=== PATIENT | male | born 1970 | race American Indian/Alaskan Native ===

== ENCOUNTER 2019-01-21 05:20 | Emergency (ER) | payer OTHER ==
[~2019-01-21] VITALS: Ht 182.9 cm; Wt 90.7 kg
[~2019-01-21 05:20] MED LIST: BUPROPION XL300 MG PO
--- OUTSIDE RECORDS SUMMARY | 2019-01-21 05:22 | XMS ---
PreManage Notification: JORGE DAVIS Security Bottom Crane Operator Events No recent Security Events currently on file CRITERIA MET - Group Notification [facility] PHONE: [phone] Rama has no Care Guidelines for this patient. Manjit VISIT COUNT (12 MO.) 1 [facility] TOTAL 1 NOTE: Visits indicate total known visits. ED/UCC VISIT TRACKING (12 MO.) 01/21/2019 05:21 [facility]INA [facility] [place] TYPE: Emergency COMPLAINT: - OVERDOSE INPATIENT VISIT TRACKING (12 MO.) No inpatient visits to display in this time frame [email or web address]/[id number]
[2019-01-21] MEDS ORDERED: SUBOXONE 8 MG-1 EAC1 SL (05:33)
== END 2019-01-21 05:55 | disposition home or self-care (01) ==
LOC: ED 05:20
DX: F15.90 Other stimulant use, unspecified, uncomplicated (principal); F32.9 Major depressive disorder, single episode, unspecified
CPT/HCPCS: 99283

== ENCOUNTER 2019-01-21 06:44 | Emergency (ER) | payer OTHER ==
[~2019-01-21] VITALS: Ht 182.9 cm; Wt 90.7 kg
[~2019-01-21 06:44] MED LIST changes: +SUBOXONE 8 MG-1 EAC1 SL
--- OUTSIDE RECORDS SUMMARY | 2019-01-21 06:46 | XMS ---
PreManage Notification: JORGE DAVIS Security Patient Financial Services Manager Events No recent Security Events currently on file CRITERIA MET - [facility] - 2 Visits in 30 Days CARE PROVIDERS [facility]Current PHONE: [phone] Rama has no Care Guidelines for this patient. Manjit VISIT COUNT (12 MO.) 2 [facility] TOTAL 2 NOTE: Visits indicate total known visits. ED/UCC VISIT TRACKING (12 MO.) 01/21/2019 06:45 [facility] [place] TYPE: Emergency COMPLAINT: - ABD PAIN 01/21/2019 05:21 [facility]ARINA [facility]endo[facility] [place] TYPE: Emergency COMPLAINT: - OVERDOSE INPATIENT VISIT TRACKING (12 MO.) No inpatient visits to display in this time frame [id number]
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
== END 2019-01-21 08:01 | disposition home or self-care (01) ==
LOC: ED 06:44
DX: R07.89 Other chest pain (principal); F32.9 Major depressive disorder, single episode, unspecified
CPT/HCPCS: 71046; 99284-25; A9270

== ENCOUNTER 2019-02-07 10:59 | Emergency (ER) | payer OTHER ==
[~2019-02-07] VITALS: Ht 182.9 cm; Wt 90.7 kg
--- OUTSIDE RECORDS SUMMARY | 2019-02-07 11:02 | XMS ---
PreManage Notification: JORGE DAVIS Security Radar Repairer Events No recent Security Events currently on file CRITERIA MET - Group Notification - [facility] - 2 Visits in 30 Days CARE PROVIDERS [facility]/02/[facility]-Current PHONE: [phone] Rama has no Care Guidelines for this patient. Manjit VISIT COUNT (12 MO.) 3 [facility] TOTAL 3 NOTE: Visits indicate total known visits. ED/C VISIT TRACKING (12 MO.) 02/07/2019 11:00 [facility] [place] TYPE: Emergency COMPLAINT: - MEDICAL CLEARANCE 01/21/2019 06:45 [facility]ARINA [facility] [place] TYPE: Emergency COMPLAINT: - ABD PAIN DIAGNOSES: - Major depressive disorder, single episode, unspecified - Unspecified abdominal pain - Other chest pain 01/21/2019 05:21 [facility]ARINA [facility]za [place] TYPE: Emergency COMPLAINT: - DRUG USE DIAGNOSES: - Other stimulant use, unspecified, uncomplicated - Major depressive disorder, single episode, unspecified INPATIENT VISIT TRACKING (12 MO.) No inpatient visits to display in this time frame [id number]
== END 2019-02-07 15:58 | disposition home or self-care (01) ==
LOC: ED 10:59
DX: R44.0 Auditory hallucinations (principal); F15.10 Other stimulant abuse, uncomplicated; F32.9 Major depressive disorder, single episode, unspecified; F17.200 Nicotine dependence, unspecified, uncomplicated; Z79.899 Other long term (current) drug therapy
CPT/HCPCS: 99284

== ENCOUNTER 2022-11-28 10:30 | Emergency (ER) | payer OTHER ==
[~2022-11-28] VITALS: Ht 182.9 cm; Wt 87.6 kg
--- OUTSIDE RECORDS SUMMARY | 2022-11-28 10:35 | XMS ---
PreManage Notification: JORGE DAVIS Security Saxophone Player Events No recent Security Events currently on file CRITERIA MET - Group Notification CARE PROVIDERS -, Danita- Dentist: Gage Designer [facility] PHONE: [phone] Rama has no Care Guidelines for this patient. Care History Substance Use/Overdose 02/07/2019 [facility] 02/07/2019 Client did not engage E.D. VISIT COUNT (12 MO.) 1 [facility]. TOTAL 1 NOTE: Visits indicate total known visits. ED/UCC VISIT TRACKING (12 MO.) 11/28/2022 10:30 [facility]INA Mendoza [place] TYPE: Emergency COMPLAINT: - HAND PAIN INPATIENT VISIT TRACKING (12 MO.) No inpatient visits to display in this time frame [id number]
[2022-11-28] MEDS ORDERED: DOXYCYCLINE HY100 MG PO (10:50)
[2022-11-28] MEDS ORDERED: CENTANY30 GM TOP (10:50)
[2022-11-28 11:02] VITALS: BP 148/99
== END 2022-11-28 11:02 | disposition home or self-care (01) ==
LOC: ED 10:30
DX: L98.9 Disorder of the skin and subcutaneous tissue, unspecified (principal); F17.200 Nicotine dependence, unspecified, uncomplicated; A49.02 Methicillin resistant Staphylococcus aureus infection, unspecified site
CPT/HCPCS: 87205; 99283

== ENCOUNTER 2023-09-24 20:59 | Emergency (ER) | payer OTHER ==
[~2023-09-24] VITALS: Ht 182.9 cm; Wt 80.0 kg
[~2023-09-24 20:59] MED LIST changes: +CENTANY30 GM TOP; +DOXYCYCLINE HY100 MG PO
--- OUTSIDE RECORDS SUMMARY | 2023-09-24 21:05 | XMS ---
PreManage Notification: JORGE DAVIS Security Wire Drawer Events No recent Security Events currently on file CRITERIA MET - Group Notification CARE PROVIDERS -, [facility] Dentist: Carbide Die Maker [facility] PHONE: [phone] -Danita- Dentist: Carbide Die Maker [facility] PHONE: [phone] GEOVANNA DORADO [facility] Current PHONE: [phone] Rama has no Care Guidelines for this patient. Care History Substance Use/Overdose 02/07/2019 [facility] 02/07/2019 Client did not engage E.D. VISIT COUNT (12 MO.) [address] [facility] TOTAL 2 NOTE: Visits indicate total known visits. ED/UCC VISIT TRACKING (12 MO.) 09/24/2023 21:00 [facility] [place] TYPE: Emergency COMPLAINT: - WOUND CHECK 11/28/2022 10:30 [facility]za [place] TYPE: Emergency COMPLAINT: - HAND PAIN DIAGNOSES: - Disorder of the skin and subcutaneous tissue, unspecified - Methicillin resistant Staphylococcus aureus infection, unspecified site - Nicotine dependence, unspecified, uncomplicated INPATIENT VISIT TRACKING (12 MO.) No inpatient visits to display in this time frame [id number]
[2023-09-24] MEDS ORDERED: DOXYCYCLINE HYCLATE 100 MG HOME.PACK PO ONE (21:15)
[2023-09-24 21:36] VITALS: BP 141/101
== END 2023-09-24 21:37 | disposition home or self-care (01) ==
LOC: ED 20:59
DX: L03.116 Cellulitis of left lower limb (principal); F17.200 Nicotine dependence, unspecified, uncomplicated
CPT/HCPCS: A9270

== ENCOUNTER 2024-02-28 00:53 | Emergency (ER) | payer OTHER ==
[~2024-02-28] VITALS: Ht 182.9 cm; Wt 82.6 kg
--- OUTSIDE RECORDS SUMMARY | 2024-02-28 00:59 | XMS ---
PreManage Notification: JORGE DAVIS Security Supervisor Concrete Stone Fabricating Events No recent Security Events currently on file CRITERIA MET - Group Notification CARE PROVIDERS [facility]/[place] 09/25/2023-[facility] \F\ [facility] PHONE: [phone] -[facility]+ Dentist: Hand Brush Filler [facility] PHONE: [phone] -Danita- Dentist: Hand Brush Filler [facility] PHONE: [phone] GEOVANNA DORADO [facility] Current PHONE: [phone] Rama has no Care Guidelines for this patient. Care History Substance Use/Overdose 02/07/2019 [facility] 02/07/2019 Client did not engage E.D. VISIT [facility] (12 MO.) 2 [facility] NOTE: Visits indicate total known visits. ED/UCC VISIT TRACKING (12 MO.) 02/28/2024 00:53 [facility] [place] [facility] COMPLAINT: - RASH 09/24/2023 21:00 KARINA Mendoza [place] TYPE: Emergency COMPLAINT: - WOUND CHECK DIAGNOSES: - Cellulitis of left lower limb - Nicotine dependence, unspecified, uncomplicated INPATIENT VISIT TRACKING (12 MO.) No inpatient visits to display in this time frame [id number]
[2024-02-28] MEDS ORDERED: PERMETHRIN60 GM TOP (01:59)
[2024-02-28] MEDS ORDERED: PERMETHRIN 60 GM TUBE TOP ONE (02:00)
[2024-02-28] MEDS ORDERED: DOXYCYCLINE HYCLATE 100 MG HOME.PACK PO ONE (02:00)
[2024-02-28 02:46] VITALS: BP 161/97
== END 2024-02-28 02:48 | disposition home or self-care (01) ==
LOC: ED 00:53
DX: B86 Scabies (principal); L03.114 Cellulitis of left upper limb; L03.113 Cellulitis of right upper limb; F17.200 Nicotine dependence, unspecified, uncomplicated
CPT/HCPCS: 99282; A9270

== ENCOUNTER 2024-05-08 14:57 | Emergency (ER) | payer OTHER ==
[~2024-05-08] VITALS: Ht 182.9 cm; Wt 84.0 kg
[~2024-05-08 14:57] MED LIST changes: +PERMETHRIN60 GM TOP
--- OUTSIDE RECORDS SUMMARY | 2024-05-08 15:03 | XMS ---
PreManage Notification: JORGE DAVIS Security Private Client Advisor Events No recent Security Events currently on file CRITERIA MET - Group Notification - [facility] - 2 Visits in 30 Days - [facility] - 3 Facilities in 90 Days CARE PROVIDERS [facility]/[place] 09/25/2023-[facility] \F\ <UNAVAIL> PHONE: [phone] ESTRADA [facility] Current PHONE: [phone] Rama has no Care Guidelines for this patient. Care History Substance Use/Overdose 02/07/2019 [facility] 02/07/2019 Client did not engage E.D. VISIT COUNT (12 MO.) 3 KARINA Thibodeaux [facility]min TOTAL 5 NOTE: Visits indicate total known visits. ED/UCC VISIT TRACKING (12 MO.) 05/08/2024 14:57 KARINA Pleitez TYPE: Emergency COMPLAINT: - MEDICATION REFILL 04/20/2024 20:50 Tamia OCASIO TYPE: Emergency COMPLAINT: - SHORTNESS BREATH, LIGHTHEADED, VOMITTING 04/12/2024 10:57 [facility] DIAGNOSES: - Bitten or stung by nonvenomous insect and other nonvenomous arthropods, initial encounter - Contact with and (suspected) exposure to pediculosis, acariasis and other infestations - Insect bite (nonvenomous) of unspecified shoulder, initial encounter - body rash - Rash 02/28/2024 00:53 KARINA Mendoza [place] TYPE: Emergency COMPLAINT: - RASH DIAGNOSES: - Cellulitis of left upper limb - Cellulitis of right upper limb - Nicotine dependence, unspecified, uncomplicated - Rash and other nonspecific skin eruption - Scabies 09/24/2023 21:00 KARINA Mendoza [place] TYPE: Emergency COMPLAINT: - WOUND CHECK DIAGNOSES: - Cellulitis of left lower limb - Nicotine dependence, unspecified, uncomplicated INPATIENT VISIT TRACKING (12 MO.) No inpatient visits to display in this time frame [id number]
[2024-05-08] MEDS ORDERED: ELIMITE60 GM TOP (15:33)
[2024-05-08 15:50] VITALS: BP 141/65
== END 2024-05-08 15:50 | disposition home or self-care (01) ==
LOC: ED 14:57
DX: Z76.0 Encounter for issue of repeat prescription (principal); B86 Scabies; F17.200 Nicotine dependence, unspecified, uncomplicated
CPT/HCPCS: 99282

== ENCOUNTER 2024-06-09 01:06 | Emergency (ER) | payer OTHER ==
[~2024-06-09] VITALS: Ht 182.9 cm; Wt 85.0 kg
[~2024-06-09 01:06] MED LIST changes: +ELIMITE60 GM TOP
--- OUTSIDE RECORDS SUMMARY | 2024-06-09 01:13 | XMS ---
PreManage Notification: JORGE DAVIS Security Social Sciences Research Scientist Events No recent Security Events currently on file CRITERIA MET - Group Notification - [facility] - 3 Facilities in 90 Days CARE PROVIDERS [facility] 09/25/2023-[facility] \F\ <UNAVAIL> PHONE: [phone] ESTRADA [facility] Current PHONE: [phone] Rama has no Care Guidelines for this patient. Care History Substance Use/Overdose 02/07/2019 [facility] 02/07/2019 Client did not engage E.D. VISIT COUNT (12 MO.) 4 [facility] 1 Tamia Parks 1 Manuel [facility] TOTAL 6 NOTE: Visits indicate total known visits. ED/UCC VISIT TRACKING (12 MO.) 06/09/2024 01:06 KARINA Mendoza [place] TYPE: Emergency COMPLAINT: - POSS FOREIGN BODY 05/08/2024 14:57 KARINA Mendoza [place] TYPE: Emergency COMPLAINT: - MEDICATION REFILL DIAGNOSES: - Encounter for issue of repeat prescription - Nicotine dependence, unspecified, uncomplicated - Scabies 04/20/2024 20:50 Tamia OCASIO TYPE: Emergency COMPLAINT: - SHORTNESS BREATH, LIGHTHEADED, VOMITTING 04/12/2024 10:57 [facility] TYPE: Emergency DIAGNOSES: - Bitten or stung by nonvenomous insect and other nonvenomous arthropods, initial encounter - Contact with and (suspected) exposure to pediculosis, acariasis and other infestations - Insect bite (nonvenomous) of unspecified shoulder, initial encounter - body rash - Rash 02/28/2024 00:53 KARINA Pleitez TYPE: Emergency COMPLAINT: - RASH DIAGNOSES: - Cellulitis of left upper limb - Cellulitis of right upper limb - Nicotine dependence, unspecified, uncomplicated - Rash and other nonspecific skin eruption - Scabies 09/24/2023 21:[address] [facility] [place] TYPE: Emergency COMPLAINT: - WOUND CHECK DIAGNOSES: - Cellulitis of left lower limb - Nicotine dependence, unspecified, uncomplicated INPATIENT VISIT TRACKING (12 MO.) No inpatient visits to display in this time frame [id number]
[2024-06-09] MEDS ORDERED: METHADOSE40 MG PO (01:17)
[2024-06-09] MEDS ORDERED: OXYCODONE/ACETAMINOPHEN 1 TAB HOME.PACK PO ONE (02:30)
[2024-06-09 03:14] VITALS: BP 164/105
== END 2024-06-09 03:14 | disposition other institution, planned readmission (95) ==
LOC: ED 01:06
DX: Z02.89 Encounter for other administrative examinations (principal); F17.200 Nicotine dependence, unspecified, uncomplicated; Z79.899 Other long term (current) drug therapy
CPT/HCPCS: 74176; 99282-25

== ENCOUNTER 2024-09-15 17:25 | Emergency (ER) | payer OTHER ==
[~2024-09-15] VITALS: Ht 182.9 cm; Wt 80.0 kg
[~2024-09-15 17:25] MED LIST changes: +METHADOSE40 MG PO
--- OUTSIDE RECORDS SUMMARY | 2024-09-15 17:31 | XMS ---
PreManage Notification: JORGE DAVIS Security Woodenware Assembler Events No recent Security Events currently on file CRITERIA MET - 6 ED Visits in 6 Months - Group Notification - [facility] - 2 Visits in 30 Days CARE PROVIDERS [facility] 09/25/2023- \F\ <UNAVAIL> PHONE: [phone] Rama has no Care Guidelines for this patient. Care History Substance Use/Overdose 02/07/2019 [facility] 02/07/2019 Client did not engage E.D. VISIT COUNT (12 MO.) [facility] 8 NOTE: Visits indicate total known visits. ED/UCC VISIT TRACKING (12 MO.) 09/15/2024 17:25 KARINA Mendoza [place] TYPE: Emergency COMPLAINT: - OVERDOSE 08/27/2024 22:58 KARINA Mendoza [place] TYPE: Emergency COMPLAINT: - ALTERED MENTAL STATUS 06/09/2024 01:06 KARINA Mendoza [place] TYPE: Emergency COMPLAINT: - POSS FOREIGN BODY DIAGNOSES: - Encounter for other administrative examinations - Nicotine dependence, unspecified, uncomplicated - Other correction (current) drug therapy 05/08/2024 14:57 KARINA Pleitez TYPE: Emergency COMPLAINT: - MEDICATION REFILL DIAGNOSES: - Encounter for issue of repeat prescription - Nicotine dependence, unspecified, uncomplicated - Scabies 04/20/2024 20:[address] TYPE: Emergency COMPLAINT: - SHORTNESS BREATH, LIGHTHEADED, VOMITTING DIAGNOSES: - Diarrhea, unspecified - Nausea with vomiting, unspecified - Opioid dependence with withdrawal 04/12/2024 10:57 Manuel Alejandra [facility] [place] TYPE: Emergency DIAGNOSES: - Bitten or stung [...] visits to display in this time frame [id number]
[2024-09-15] MEDS ORDERED: NARCAN4 MG INH (17:40)
[2024-09-15] MEDS ORDERED: NALOXONE 4 MG NASAL SPRAY #2 HOME.PACK NAS PRN ×2 (17:45→18:00)
[2024-09-15 17:51] VITALS: BP 142/86
== END 2024-09-15 17:51 | disposition left against medical advice (07) ==
LOC: ED 17:25
DX: T40.411A Poisoning by fentanyl or fentanyl analogs, accidental (unintentional), initial encounter (principal); R40.4 Transient alteration of awareness; Z53.29 Procedure and treatment not carried out because of patient's decision for other reasons; F17.200 Nicotine dependence, unspecified, uncomplicated
CPT/HCPCS: 99284; J3490